=== PATIENT | female | born 1990 | race Caucasian/White ===

== ENCOUNTER 2023-12-26 16:40 | Emergency (ER) | payer OTHER, SELFPAY ==
[2023-12-26 16:43] VITALS: BP 121/76; PULSE 94; TEMP 36.9; O2SAT 99
--- NOTE | 2023-12-26 17:00 | ED_ITS ---
HPI HPI - General Adult General Chief complaint: Psychiatric Symptoms Stated complaint: ALTERED MENTAL Time Seen by Provider: 12/26/23 16:49 Source: patient Mode of arrival: ambulance Limitations: no limitations History of Present Illness HPI narrative: The patient brought to us by the police department for wellness check due to possible altered mental status, the patient grandparents called the police after she was outside their house using the faucet to wash her face The patient was also barefoot when arrived According to the patient that initially seem to be have been initiated. She was smoking marijuana before the arrival She mentioned that she was kicked out of her father house as well as her mother house and she is going to live with her , her is coming to pick her up from the ER When speaking with the patient she was cooperative she was able to give me a full history as well as oriented x 3 She denies being suicidal homicidal and she was showing episodes of laughing sometimes when talking to her but mentioned that she usually just smokes marijuana she does not use drugs When asked about being depressed she mentioned that she is always thinking about her kids and she have 3 kids that are at the custody of her sister and she would not hurt herself because she want to be there for her kids Related Data Allergies Allergy/AdvReac Type Severity Reaction Status Date / Time No Known Drug Allergies Allergy Verified 12/26/23 16:48 Opioid HPI Opioid Management Most Recent Opioid Data: Ur Phencyclidine Scrn Negative (NEGATIVE) 12/26/23 18:30 Review of Systems ROS Status of ROS 10 or more systems reviewed and unremark able except as noted in history and below Exam Narrative Exam Narrative: Nurses notes and vital signs reviewed and patient is not hypoxic. General: Well-appearing and in no apparent distress. Skin: Warm, dry, no pallor noted. No rash. Head: Normocephalic, atraumatic. Neck: Supple, non-tender. Eye: Pupils are equal, round and EOMI. No scleral icterus. Ears, Nose, Mouth, and Throat: TM are clear, no nasal mucosal hypertrophy. Oral mucosa is moist, no posterior oropharynx erythema, uvula is mid-line Cardiovascular: Regular Rate and Rhythm without murmur, gallop or rub. Respiratory: No accessory muscle use or respiratory distress. Lungs are clear to auscultation, no wheezing, rales or rhonchi Chest Wall: no tenderness Back: No midline thoracic or lumbar vertebral tenderness. No CVA tenderness Musculoskeletal: normal ROM, no calf or popliteal tenderness, no lower extremity edema/swelling GI: Abdomen is soft, non-distended. Normal bowel sounds. No masses appreciated. No tenderness to palpation. No rebound, guarding, or rigidity noted. Neurological: A&O x4. No cranial nerve dysfunction observed. No truncal ataxia. Moves all extremities. Sensation intact. Psychiatric: Cooperative and interactive. Euphoric sometimes and laughing Constitutional Vital Signs, click to edit/add: Last Vital Signs Temp 98.5 F 12/26/23 16:43 Pulse 94 H 12/26/23 16:43 Resp 16 12/26/23 16:43 BP 121/76 12/26/23 16:43 Pulse Ox 99 12/26/23 16:43 O2 Del Method Room Air 12/26/23 16:43 Course Vital Signs Vital signs: Vital Signs Temperature 98.5 F 12/26/23 16:43 Pulse Rate 94 H 12/26/23 16:43 Respiratory Rate 16 12/26/23 16:43 Blood Pressure 121/76 12/26/23 16:43 Pulse Oximetry 99 12/26/23 16:43 Oxygen Delivery Method Room Air 12/26/23 16:43 Temperature 98.5 F 12/26/23 16:43 Pulse Rate 94 H 12/26/23 16:43 Respiratory Rate 16 12/26/23 16:43 Blood Pressure 121/76 12/26/23 16:43 Pulse Oximetry 99 12/26/23 16:43 Oxygen Delivery Method Room Air 12/26/23 16:43 Medical Decision Making [facility] Narrative Medical decision making narrative: CBC shows no leukocytosis and normal and the patient chemistry shows mild hypokalemia The patient alcohol level is negative Awaiting the tox screen The patient presentation is mostly secondary to marijuana use as she admitted to smoking before arrival, at the moment the patient is being coherent mentioned that she have reason to live and she is not depressed, referring to her kids The patient is not suicidal or homicidal and her presentation could be secondary to use of marijuana The patient right now will be discharged as soon as we have a safe discharge for her to go home either to her grandparents or her mother house Lab Data Labs: Lab Results 12/26/23 12/26/23 Range/Units 17:11 18:30 WBC 7.9 (4.0-11.0) 10^3/uL RBC 3.83 L (4.20-5.40) 10^6/uL Hgb 11.8 L (12.0-16.0) g/dL Hct 34.5 L (36.0-48.0) % MCV 90.1 (81.0-99.0) fL MCH 30.8 (26.7-34.0) pg MCHC 34.2 (29.9-35.2) g/dL RDW 12.6 (11.0-15.0) % Plt Count 284 (150-450) 10^3/uL MPV 9.6 (9.5-13.5) fL Neut % (Auto) 69.7 (43.0-75.0) % Lymph % (Auto) 19.0 L (20.5-60.0) % Casey % (Auto) 9.6 (1.7-12.0) % Eos % (Auto) 1.3 (0.9-7.0) % Baso % (Auto) 0.1 L (0.2-2.0) % Neut # (Auto) 5.5 (1.4-6.5) 10^3/uL Lymph # (Auto) 1.5 (1.2-3.8) 10^3/uL Casey # (Auto) 0.8 (0.3-0.8) 10^3/uL Eos # (Auto) 0.1 (0.0-0.7) 10^3/uL Baso # (Auto) 0.0 (0.0-0.1) 10^3/uL Abs Immat Gran (auto) 0.02 (0.00-0.03) 10^3/uL Imm/Tot Granulo (auto) 0.3 (0.0-0.5) % Sodium 141 (136-145) mmol/L Potassium 3.1 L (3.5-5.1) mmol/L Chloride 105 (98-107) mmol/L Carbon Dioxide 26.1 (21.0-32.0) mmol/L Anion Gap 13.0 BUN 15.0 (7.0-18.0) mg/dL Creatinine 0.98 (0.55-1.02) mg/dL Est GFR ( Amer) >60 (>=60) Est GFR (Non-Af Amer) >60 (>=60) BUN/Creatinine Ratio 15.3 Glucose 90 (74-106) mg/dL Calcium 8.9 (8.5-10.1) mg/dL Total Bilirubin 0.7 (0.2-1.0) mg/dL AST 37 (15-37) U/L ALT 21 (14-59) U/L Alkaline Phosphatase 59 (46-116) U/L Total Protein 7.0 (6.4-8.2) g/dL Albumin 3.8 (3.4-5.0) g/dL Globulin 3.2 g/dL Albumin/Globulin Ratio 1.2 Serum HCG, Qual Negative (NEGATIVE) Urine Opiates Screen Negative (NEGATIVE) Ur Buprenorphine Scrn Negative (NEGATIVE) Ur Oxycodone Screen Negative (NEGATIVE) Urine Methadone Screen Negative (NEGATIVE) Ur Barbiturates Screen Negative (NEGATIVE) U Tricyclic Antidepress Negative (NEGATIVE) Ur Phencyclidine Scrn Negative (NEGATIVE) Ur Amphetamines Screen Negative (NEGATIVE) U Methamphetamines Scrn Negative (NEGATIVE) U Benzodiazepines Scrn Negative (NEGATIVE) Urine Cocaine Screen Negative (NEGATIVE) U Cannabinoids Screen Positive A (NEGATIVE) Ethanol Quant <3 mg/dL Discharge Plan Discharge Chief Complaint: Psychiatric Symptoms Clinical Impression: Cannabis use disorder Time of Disposition Decision: 18:55 Print Language: Chadian Referrals: Physician,Non-Staff, MD [Primary Care Provider] - 1 week
[2023-12-26 17:25] LABS: Basophils Percent Auto 0.1 % (0.2-2.0); Eosinophils Absolute Auto 0.1 10^3/uL (0.0-0.7); Eosinophils Percent Auto 1.3 % (0.9-7.0); Hematocrit 34.5 % (36.0-48.0); Hemoglobin 11.8 g/dL (12.0-16.0); Immature Granulocytes Abs Auto 0.02 10^3/uL (0.00-0.03); Immature Granulocytes Pct Auto 0.3 % (0.0-0.5); Lymphocytes Absolute Auto 1.5 10^3/uL (1.2-3.8); Mean Corpuscular HGB Conc 34.2 g/dL (29.9-35.2); Mean Corpuscular Hemoglobin 30.8 pg (26.7-34.0); Mean Corpuscular Volume 90.1 fL (81.0-99.0); Mean Platelet Volume 9.6 fL (9.5-13.5); Monocytes Absolute Auto 0.8 10^3/uL (0.3-0.8); Monocytes Percent Auto 9.6 % (1.7-12.0); Neutrophils Absolute Auto 5.5 10^3/uL (1.4-6.5); Neutrophils Percent Auto 69.7 % (43.0-75.0); Platelet Count 284 10^3/uL (150-450); Red Blood Count 3.83 10^6/uL (4.20-5.40); Red Cell Distribution Width 12.6 % (11.0-15.0); White Blood Count 7.9 10^3/uL (4.0-11.0)
[2023-12-26 17:40] LABS: Alanine Aminotransferase 21 U/L (14-59); Albumin Globulin Ratio 1.2; Albumin Level 3.8 g/dL (3.4-5.0); Alkaline Phosphatase 59 U/L (46-116); Aspartate Amino Transferase 37 U/L (15-37); BUN Creatinine Ratio 15.3; Bilirubin Total 0.7 mg/dL (0.2-1.0); Calcium 8.9 mg/dL (8.5-10.1); Carbon Dioxide 26.1 mmol/L (21.0-32.0); Chloride 105 mmol/L (98-107); Estimated GFR (African America >60 (>=60); Estimated GFR (Non-African Ame >60 (>=60); Globulin 3.2 g/dL; Glucose 90 mg/dL (74-106); Potassium 3.1 mmol/L (3.5-5.1); Sodium 141 mmol/L (136-145)
[2023-12-26 17:41] LABS: Ethanol <3 mg/dL
[2023-12-26 17:46] LABS: HCG Qualitative NEGATIVE (NEGATIVE); Internal Control Within Normal Limits
[2023-12-26 18:44] LABS: Amphetamine Screen Urine NEGATIVE (NEGATIVE); Barbiturates Screen Urine NEGATIVE (NEGATIVE); Benzodiazepines Screen Urine NEGATIVE (NEGATIVE); Buprenorphine Screen Urine NEGATIVE (NEGATIVE); Cannabinoid Screen Urine POSITIVE (NEGATIVE); Cocaine Screen Urine NEGATIVE (NEGATIVE); Methadone Screen Urine NEGATIVE (NEGATIVE); Methamphetamines Screen Urine NEGATIVE (NEGATIVE); Opiate Screen Urine NEGATIVE (NEGATIVE); Oxycodone Screen Urine NEGATIVE (NEGATIVE); Phencyclidine Screen Urine NEGATIVE (NEGATIVE); Tricyclic Antidepressant Urine NEGATIVE (NEGATIVE)
== END 2023-12-26 19:30 | disposition home or self-care (01) ==
PROVIDERS: Emergency Provider Emergency Medicine
DX: F12.988 Cannabis use, unspecified with other cannabis-induced disorder (principal)
CPT/HCPCS: 36415; 80053; 80307; 80320; 84703; 85025; 99283

== ENCOUNTER 2024-01-09 17:00 | Emergency (ER) | payer OTHER, SELFPAY ==
[2024-01-09 17:03] VITALS: BP 111/70; PULSE 87; TEMP 36.4; O2SAT 98; BMI 18.2
--- NOTE | 2024-01-09 17:42 | ED_ITS ---
HPI - Anxiety General Chief Complaint: Anxiety Stated Complaint: ANXIETY SYMPTOMS Time Seen by Provider: 01/09/24 17:13 Source: patient Mode of arrival: walk-in Limitations: no limitations History of Present Illness HPI narrative: The patient is coming to us with a concern of an anxiety, she mentioned that she has been having a lot going on for the last year including losing her kids and sleeping in her car after she being homeless, the patient mentioned that she will have episodes where she, has panic attack and she cannot sleep sometimes, the patient is denying any pain specifically to the chest or abdomen or head She also denies being suicidal or homicidal Related Data Previous Rx's ?Medication ?Instructions ?Recorded hydroxyzine pamoate 25 mg capsule 25 mg PO Q8H PRN anxiety #10 caps 01/09/24 (Vistaril) Allergies Allergy/AdvReac Type Severity Reaction Status Date / Time No Known Drug Allergies Allergy Verified 12/26/23 16:48 Review of Systems ROS Status of ROS 10 or more systems reviewed and unremark able except as noted in history and below Exam Narrative Exam Narrative: Nurses notes and vital signs reviewed and patient is not hypoxic. General: Well-appearing and in no apparent distress. Skin: Warm, dry, no pallor noted. No rash. Head: Normocephalic, atraumatic. Neck: Supple, non-tender. Eye: Pupils are equal, round and EOMI. No scleral icterus. Ears, Nose, Mouth, and Throat: TM are clear, no nasal mucosal hypertrophy. Oral mucosa is moist, no posterior oropharynx erythema, uvula is mid-line Cardiovascular: Regular Rate and Rhythm without murmur, gallop or rub. Respiratory: No accessory muscle use or respiratory distress. Lungs are clear to auscultation, no wheezing, rales or rhonchi Chest Wall: no tenderness Back: No midline thoracic or lumbar vertebral tenderness. No CVA tenderness Musculoskeletal: normal ROM, no calf or popliteal tenderness, no lower extremity edema/swelling GI: Abdomen is soft, non-distended. Normal bowel sounds. No masses appreciated. No tenderness to palpation. No rebound, guarding, or rigidity noted. Neurological: A&O x4. No cranial nerve dysfunction observed. No truncal ataxia. Moves all extremities. Sensation intact. Psychiatric: Cooperative and interactive. Normal mood and affect. Constitutional Vital Signs, click to edit/add: Last Vital Signs Temp 97.6 F 01/09/24 17:03 Pulse 87 01/09/24 17:03 Resp 18 01/09/24 17:03 BP 111/70 01/09/24 17:03 Pulse Ox 98 01/09/24 17:03 O2 Del Method Room Air 01/09/24 17:35 Course Vital Signs Vital signs: Vital Signs Temperature 97.6 F 01/09/24 17:03 Pulse Rate 87 01/09/24 17:03 Respiratory Rate 18 01/09/24 17:03 Blood Pressure 111/70 01/09/24 17:03 Pulse Oximetry 98 01/09/24 17:03 Oxygen Delivery Method Room Air 01/09/24 17:03 Temperature 97.6 F 01/09/24 17:03 Pulse Rate 87 01/09/24 17:03 Respiratory Rate 18 01/09/24 17:03 Blood Pressure 111/70 01/09/24 17:03 Pulse Oximetry 98 01/09/24 17:03 Oxygen Delivery Method Room Air 01/09/24 17:35 MDM - Anxiety MDM Narrative Medical decision making narrative: The patient had multiple reasons to be anxious including the fact that she lives in her car, but she denied on multiple occasion that she is suicidal or homicidal She has never been seen by psychiatrist and she never had an official diagnosis of anxiety Right now other supportive care the patient will be provided with Vistaril for anxiety management and she was provided with resources for outpatient treatment The patient is to follow up with primary care physician in next 2-3 days or to return to the emergency department should any of the signs or symptoms worsen or new symptoms develop. The patient agrees with the following Diagnosis and Treatment plan and the patient will be discharged home. Discharge Plan Discharge Stand Alone Forms: Portal Instructions Chief Complaint: Anxiety Clinical Impression: Anxiety Patient Disposition: Home, Self-Care Time of Disposition Decision: 17:28 Condition: Good Prescriptions / Home Meds: New hydroxyzine pamoate [Vistaril] 25 mg capsule 25 mg PO Q8H PRN (Reason: anxiety) Qty: 10 0RF Print Language: Moroccan Instructions: Anxiety (ED) Referrals: Physician,Non-Staff, MD [Primary Care Provider] - 1 week
== END 2024-01-09 17:43 | disposition home or self-care (01) ==
PROVIDERS: Emergency Provider Emergency Medicine
DX: F41.9 Anxiety disorder, unspecified (principal); Z59.02 Unsheltered homelessness
CPT/HCPCS: 99283

== ENCOUNTER 2024-11-24 01:00 | Emergency (ER) | payer OTHER, SELFPAY ==
--- OUTSIDE RECORDS SUMMARY | 2024-02-22 09:06 | XMS_ITS | Continuity of Care Document ---
Author Organization [facility] Address [address] [place] [address] Phone Care Team Providers Care Independent Film Maker Name Role Phone Saran MSN, WASHING TUB OPERATOR-C, PM, Viki Unavailable Unavailable Allergies, Adverse Reactions, Alerts Substance Reaction Status Criticality No Known Allergies Active No Inform ation Medications Medication Instructions Dosage Effective Dates (start - stop) Status Comments hydroxyzine pamoate 50 mg capsule PO every 6 hours as needed - Active paliperidone ER 3 mg tablet,extended release 24 hr take 1 tablet by oral route daily at bedtime - Active nicotine 21 mg/24 hr daily transdermal patch apply 1 patch by transdermal route every day and remove at bedtime 21 MG - Active Procedures Procedure Date Bp scrn perf rec interval DIAST BP < 80 MM HG SYST BP < 130 MM HG MED LIST DOCD IN [facility] RVW MEDS BY RX/DR IN [facility] PT TOBACCO USE DONE [facility] TLK Pos clin depres scrn f/u doc ROUTINE VENIPUNCTURE OFFICE/OUTPATIENT VISIT, EST PREV VISIT, NEW, AGE 18-39 OFFICE/OUTPATIENT VISIT, EST SPECIMEN HANDLING RISK ASSISSMENT CARE COORDINATION OFFICE/OUTPATIENT VISIT, EST GLUCOSE BLOOD TEST CARE COORDINATION OFFICE/OUTPATIENT VISIT, EST CARE COORDINATION OFFICE/OUTPATIENT VISIT, EST SPECIMEN HANDLING CARE COORDINATION OFFICE/OUTPATIENT VISIT, NEW RISK ASSISSMENT COUNSELING AND EDUCATION CARE COORDINATION ROUTINE VENIPUNCTURE OFFICE/OUTPATIENT VISIT, EST URINE TEST Advance Directives Directive Yes / No Effective Date File Name No Information Encounters Encounter Description Practice Location Reason(s) For Visit Diagnoses Date Provider Providers Copied on Encounter [facility], [address], [place], [id number] , [place] tel:[phone] [facility] No Information 4 Saran Drew. [address] [place] [address], [id number], [place]. tel:[phone] OFFICE/OUTPA TIENT VISIT, [facility], [address] [place] [address], [id number] , [place] tel:[phone] [facility] Establish Care (chief complaint) Lab Draw (chief complaint) Body mass index [BMI] 21.0-21.9, adultAnxiety disorder, unspecifiedDepressio n, unspecifiedNeed for hepatitis C screening testScreening for HIV (human immunodeficiency virus)Diabetes mellitus screeningPolysubstan ce use disorder 4 Aren Alcantara. [address] [place] [address], [id number], [place]. tel:[phone] PREV VISIT, NEW, AGE 18-39 [facility], [address], [place], [id number] , [place] tel:[phone] [facility] annual exam (chief complaint) Encounter for gynecological examination (general) (routine) without abnormal findings- STD High risk heterosexual behavior- STD screen- HIVIrregular periods 4 Abdiel [facility] Paulina. [address] [place] [address], [id number], [place]. tel:[phone] OFFICE/OUTPA TIENT VISIT, [facility], [address] [place] [address], [id number] , [place] tel: [phone] [facility] No Information 1 Edwina EDITA Celeste. [address], [place], [id number]. tel:[phone] OFFICE/OUTPA TIENT VISIT, [facility], [address], [place], [id number] , [place] tel: [phone] [facility] No Information 1 Edwina EDITA Celeste. [address], [place], [id number]. tel:[phone] OFFICE/OUTPA TIENT VISIT, [facility], [address], [place], [id number] , [place] tel: [phone] [facility] No Information 1 Diane Donahue. [address], [place], [id number]. tel:[phone] OFFICE/OUTPA TIENT VISIT, [facility], [address], [place], [id number] , [place] tel: [phone] [facility] No Information 1 Diane Donahue. [address], [place], [id number]. tel:[phone] OFFICE/OUTPA TIENT VISIT, [facility], [address], [place], [id number] , [place] tel: [phone] [facility] No Information 1 Rukhsana Jamison. [address], [place], [id number], [place]. tel:[phone] OFFICE/OUTPA TIENT VISIT, [facility], [address], [place], [id number] , [place] tel: [phone] [facility] No Information 0 Leslie Alarcon. [address], [place], [id number], [place]. tel:[phone] Family History Family Member Type Diagnosis Age At Onset Mother Problem illegal drug use Father Problem illegal drug use Sister Problem illegal drug use Mother Problem Mental disorder Father Problem Alcoholism Payers Payer name Insurance type Covered alliance party ID Renee [facility]s) [facility] [id number] Medicaid Wrap - [facility] [id number] Social History Type Description Quantity Date Captured Comments Alcohol Use Details Unknown Caffeine Use Details Unknown Tobacco Use Status Smoking Status No Information Sex Female Sexual Orientation Straight or heterosexual Dec Gender Identity Female Chief Complaint And Reason For Visit No Information Reason For Referral Reason For Referral No Information Plan Of Treatment Date Type Action Status Goal HPV. Due on due Goal Hepatitis C screening. Due o n due Goal Depression screening. Due on due Goal Influenza vaccine. Due on due Goal Unhealthy drug use screening . Due on due Goal RLP. Due on due Goal Lipid panel. Due on due Goal PRAPARE ASSESSMENT. Due on S due Goal Tdap. Due on due Goal Tdap Vaccine. Due on 2023 due Goal Tdap. Due on due Goal Unhealthy drug use screening . Due on due Goal Depression screening. Due on due Goal HPV. Due on due Goal RLP. Due on due Goal Influenza vaccine. Due on due Goal Hepatitis C screening. Due o n due Goal PRAPARE ASSESSMENT. Due on A due Goal Tdap Vaccine. Due on 2023 due Goal Tobacco cessation counseling completed Goal Lifestyle education regardin g diet completed Goal Hepatitis C screening. Due o n due Goal Unhealthy drug use screening . Due on due Goal Tdap Vaccine. Due on 2023 due Goal RLP. Due on due Goal Tdap. Due on due Goal Influenza vaccine. Due on Ju due Goal Depression screening. Due on due Goal HPV. Due on due Goal PRAPARE ASSESSMENT. Due on J due History Of Present Illness Encounter Date Complaint History Of Presmaira nt Illness Establish Care Patient is here to establish care. Patient states main concern is her psychiatric issues. Patient states she is very ADHD and has a hard time buckling down. States she is having a hard time keeping her thoughts focused. States even coming in for her appointment was a chore. Would like referred to an general road production manager. States she is wondering what would be best since she has [facility]. Patient is agreeable to laboratory work. Patient struggles with anxiety and depression. Patient was just released from [facility] with a Dx of Acute Psychosis and Schizophrenia. Has all paperwork present at the visit. Smokes 2 cigarettes/day.//Liz PETIT. Not interested in vaccines.//Liz PETIT. Lab Draw Labs drawn x1 at tempt in [facility]. Patient tolerated well. 2x2 and bandage applied.//Liz PETIT.review of hospital paperwork shows dx of psychosis. no schizophrenia listed in her paperwork. tp annual exam Currently pregna nt: no. : 4. Parity: Term: 4. Livin. The client states using tubal ligation for control. Last LMP was 12/20/2023. The client does not use tobacco. The client formerly drank alcohol. Additional information: Patient is here for annual exam. She is currently abstinent and has been living in her car until 1 week ago when she moved into [employer] 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 She desires HIV, RPR and Hep C. She does not desire BCM or regulation of menses at this time. States she is starting to eat better and gain weight and feels as if her menses will regulate on their own once she is healthier. . Functional Status Date Functional Assessmen t No Information Instructions Date Instruction Additional Infor codie Lifestyle education regarding di et Related to Body mass index [BMI] 21.0-21.9, adult Giving encouragement to exercise Related to Body mass index [BMI] 21.0-21.9, adult Discussed irregular menses in detail and agree menses may regulate once she is at a healthy weight. Patient desires to monitor for 1 year. Of continues after 1 year then patient instructed to RTC for evaluation Related to Irregular periods cervical cultures ob tained and sent to lab. Patient to call in 1 week for result. Stress importance of using condoms to prevent STDs in the future. Related to - STD screen HIV, RPR and Hep C d rawn and sent to lab. Valarieetn to call in 1 week for result Related to - HIV Encouraged good diet albaro intake, exercise and healthy lifestyle choices. Recommend daily multi-vitamin with Folic acid. Understands the need for non-violent partners in a consensual relationship. Patient does not desire a in the near future. Reviewed control options for prevention and desires to not be on BCM at this time. Desires abstinenceDesires HIV, RPR and Hep CDeclines vaccines offered in office today Related to Encounter for gynecological examination (general) (routine) without abnormal findings Assessments Type Assessment Date No Information Patient Care Teams Name Effective Dates (start - stop) Status Members No Information
[2024-11-24 01:01] VITALS: BP 116/62; PULSE 66; TEMP 36.9; O2SAT 99; BMI 22.3
--- NOTE | 2024-11-24 01:36 | ED.PSYCH1 ---
Documented by User: Keshav Khan MD 11/25/24 19:37 HPI - Psych General Chief Complaint: Psychiatric Symptoms Stated Complaint: PSYCHIATRIC SYMPTOMS Time Seen by Provider: 11/24/24 01:33 Source: Reports patient Mode of arrival: walk-in Limitations: Reports no limitations History of Present Illness HPI Narrative: history of schizophrenia. Stop taking her medication last year 04/13. auditory and visual hallucinations. left work this AM. Feels she is being stalked. denies any thought of suicide . Denies overdose of any drugs. Did smoke marijuana a couple of days ago Related Data Allergies Allergy/AdvReac Type Severity Reaction Status Date / Time No Known Drug Allergies Allergy Verified 11/24/24 01:01 PFSH PFSH Social History Little interest or pleasure in doing things: more than half the days Feeling down, depressed, or hopeless: more than half the days Exam Constitutional Vital Signs, click to edit/add: Last Vital Signs Temp 98.5 F 11/24/24 01:01 Pulse 67 11/24/24 07:56 Resp 20 11/24/24 07:56 BP 115/76 11/24/24 07:56 Pulse Ox 100 11/24/24 07:56 O2 Del Method Room Air 11/24/24 07:56 Common normals: no apparent distress, average body habitus, oriented x3, no limitations, healthy appearing, alert and well nourished [facility] Common normals: normocephalic and head/scalp atraumatic Eye Common normals: PERRL and EOMs intact bilaterally Respiratory Common normals: normal respiratory effort, no retractions, no use of accessory muscles and clear to auscultation bilaterally Cardio Common normals: regular rate, regular rhythm, S1 normal heart sound and S2 normal heart sound GI Common normals: Normal to inspection, nondistended, normoactive bowel sounds present, soft to palpation and non-tender Extremity Common normals: normal to inspection and full ROM Neuro Common normals: oriented x3, CN's II-XII intact bilaterally, moves all extremities, no focal motor deficits and no sensory deficits noted Psych Appearance: grossly normal Course Vital Signs Vital signs: Vital Signs Temperature 98.5 F 11/24/24 01:01 Pulse Rate 66 11/24/24 01:01 Respiratory Rate 16 11/24/24 01:01 Blood Pressure 116/62 11/24/24 01:01 Pulse Oximetry 99 11/24/24 01:01 Oxygen Delivery Method Room Air 11/24/24 01:01 Temperature 98.5 F 11/24/24 01:01 Pulse Rate 67 11/24/24 07:56 Respiratory Rate 20 11/24/24 07:56 Blood Pressure 115/76 11/24/24 07:56 Pulse Oximetry 100 11/24/24 07:56 Oxygen Delivery Method Room Air 11/24/24 07:56 MDM - Psych MDM Narrative Medical decision making narrative: patient is schizophrenic. presents from work with complaint of hallucinations. has not taken any psych meds since 04/13. Not suicidal and remains cooperative. Lab unremarkable except urine drug screen positive for marijuan which patient admitted to. Waiting for her to consult with mental health worker and then will decide disposition Lab Data Labs: Lab Results 11/24/24 11/24/24 Range/Units 01:15 01:40 WBC 5.5 (4.0-11.0) 10^3/uL RBC 4.11 L (4.20-5.40) 10^6/uL Hgb 12.5 (12.0-16.0) g/dL Hct 36.7 (36.0-48.0) % MCV 89.3 (81.0-99.0) fL MCH 30.4 (26.7-34.0) pg MCHC 34.1 (29.9-35.2) g/dL RDW 12.8 (11.0-15.0) % Plt Count 283 (150-450) 10^3/uL MPV 9.8 (9.5-13.5) fL Neut % (Auto) 66.9 (43.0-75.0) % Lymph % (Auto) 21.1 (20.5-60.0) % [place] % (Auto) 9.3 (1.7-12.0) % Eos % (Auto) 2.5 (0.9-7.0) % Baso % (Auto) 0.2 (0.2-2.0) % Neut # (Auto) 3.7 (1.4-6.5) 10^3/uL Lymph # (Auto) 1.2 (1.2-3.8) 10^3/uL [place] # (Auto) 0.5 (0.3-0.8) 10^3/uL Eos # (Auto) 0.1 (0.0-0.7) 10^3/uL Baso # (Auto) 0.0 (0.0-0.1) 10^3/uL Abs Immat Gran (auto) 0.00 (0.00-0.03) 10^3/uL Imm/Tot Granulo (auto) 0.0 (0.0-0.5) % Sodium 140 (136-145) mmol/L Potassium 3.7 (3.5-5.1) mmol/L Chloride 104 (98-107) mmol/L Carbon Dioxide 28.6 (21.0-32.0) mmol/L Anion Gap 11.1 BUN 14.0 (7.0-18.0) mg/dL Creatinine 0.67 (0.55-1.02) mg/dL Est GFR ( Amer) >60 (>=60 mL/min/1.73m^2) Est GFR (Non-Af Amer) >60 (>=60 mL/min/1.73m^2) BUN/Creatinine Ratio 20.9 Glucose 104 (74-106) mg/dL Calcium 9.0 (8.5-10.1) mg/dL Total Bilirubin 0.3 (0.2-1.0) mg/dL AST 13 L (15-37) U/L ALT 9 L (14-59) U/L Alkaline Phosphatase 55 (46-116) U/L Total Protein 7.6 (6.4-8.2) g/dL Albumin 3.8 (3.4-5.0) g/dL Globulin 3.8 g/dL Albumin/Globulin Ratio 1.0 Salicylates <2.8 (<=19.9) mg/dL Urine Opiates Screen Negative (NEGATIVE) Ur Buprenorphine Scrn Negative (NEGATIVE) Ur Oxycodone Screen Negative (NEGATIVE) Urine Methadone Screen Negative (NEGATIVE) Acetaminophen <2.0 L (10.0-30.0) ug/mL Ur Barbiturates Screen Negative (NEGATIVE) U Tricyclic Antidepress Negative (NEGATIVE) Ur Phencyclidine Scrn Negative (NEGATIVE) Ur Amphetamines Screen Negative (NEGATIVE) U Methamphetamines Scrn Negative (NEGATIVE) U Benzodiazepines Scrn Negative (NEGATIVE) Urine Cocaine Screen Negative (NEGATIVE) U Cannabinoids Screen Positive A (NEGATIVE) Ethanol Quant <3 mg/dL Discharge Plan Discharge Chief Complaint: Psychiatric Symptoms Clinical Impression: Chronic schizophrenia, Cannabis use disorder, Medical non-compliance, Bipolar disorder, Schizoaffective disorder, bipolar type [facility] Time of Disposition Decision: 09:40 Discharge Location: [facility] Discharge location: [address]; admission Condition: Fair Discharge Date/Time: 11/24/24 11:09 Documented by User: Destin Al MD 11/24/24 10:19 HPI - Psych General Chief Complaint: Psychiatric Symptoms Stated Complaint: PSYCHIATRIC SYMPTOMS Time Seen by Provider: 11/24/24 01:33 Related Data Allergies Allergy/AdvReac Type Severity Reaction Status Date / Time No Known Drug Allergies Allergy Verified 11/24/24 01:01 PFSH PFSH Social History Little interest or pleasure in doing things: more than half the days Feeling down, depressed, or hopeless: more than half the days Exam Constitutional Vital Signs, click to edit/add: Last Vital Signs Temp 98.5 F 11/24/24 01:01 Pulse 67 11/24/24 07:56 Resp 20 11/24/24 07:56 BP 115/76 11/24/24 07:56 Pulse Ox 100 11/24/24 07:56 O2 Del Method Room Air 11/24/24 07:56 Course Vital Signs Vital signs: Vital Signs Temperature 98.5 F 11/24/24 01:01 Pulse Rate 66 11/24/24 01:01 Respiratory Rate 16 11/24/24 01:01 Blood Pressure 116/62 11/24/24 01:01 Pulse Oximetry 99 11/24/24 01:01 Oxygen Delivery Method Room Air 11/24/24 01:01 Temperature 98.5 F 11/24/24 01:01 Pulse Rate 67 11/24/24 07:56 Respiratory Rate 20 11/24/24 07:56 Blood Pressure 115/76 11/24/24 07:56 Pulse Oximetry 100 11/24/24 07:56 Oxygen Delivery Method Room Air 11/24/24 07:56 MDM - Psych MDM Narrative Medical decision making narrative: patient is schizophrenic. presents from work with complaint of hallucinations. has not taken any psych meds since 04/13. Not suicidal and remains cooperative. Lab unremarkable except urine drug screen positive for marijuan which patient admitted to. Waiting for her to consult with mental health worker and then will decide disposition 914 I have spoken to the social services manager who evaluated this patient, Carla. She was going to safety plan this patient. After reviewing the triage note, Dr. Khan's note, and also looking at the crisis management plan that Carla had laid out for the patient, I am uncomfortable sending this patient home, seeming that she is not able to care for herself. Patient is hallucinating, delusional, patient appears to have possibly major depression. And that documented she is feeling overwhelmed, spending too much time alone, self isolating, situation anxiety, not taking any medications. Patient was going to have a emergency appointment scheduled for Wednesday, but patient is feeling paranoid, anxious, she is hearing voices, she is seeing things. She for like there is bugs coming out of her eyes. Patient did not appear appropriate to be able to take care of herself this weekend. After I spoke to Carla, she will speak to her psychiatrist and further make recommendations on admission or give me a call to speak about the patient. 934 we received a phone call back from Carla, I did not speak to her. She asked if I would fill out a pink slip to [employer] trade union secretary. Patient will not be admitted to oneself. I did not speak to Carla or the psychiatrist. I am filling out the pink slip on behalf of patient's interesting concerns that she does not have the functional decision-making capacity to care for herself. Patient will be admitted for further psychiatric evaluation. Patient is aware of the pink slip. Patient is aware concern for safety, that this is needed admission trying to get her back on medication, try to make sure that she is stable and healthy for herself and children [place] slipped has been filled out [phone] I spoke to the patient with Leigh Pan RN and ER zinc furnace charger as a witness at bedside. Conversation went very well. Patient is concerned about missing work and financial concerns now that she has an apartment on her own, she is starting to pay her bills and is starting to function on her own. Patient states that she had been dealing with her mental health for 5 to 6 months without medication and she has been managing it somewhat. Patient however was more concerned last night, she called the helpline was recommended come into the ER. Patient understands there is concerns for her mental wellbeing, concerns that if she continues to work when she is not more focused, and having different paranoia, hallucinations, and having exacerbation of schizoaffective disorder with bipolar type, is considering the patient may lose her job or have other concerns that may occur at work where she could lose her job and money. We discussed that social workers, will work with her along with human resources at her job. Patient wants to go home, but understands the reason for admission and is agreeing at this time. Patient is aware that she is pink slipped for her mental wellbeing and to make sure that she gets evaluated, see psychiatrist and therapist, get back on medication, so that she continue to function and do better at her job in life than she has been in the last 5 to 6 months. Patient agrees with this. Patient will be admitted to Dr. Briones at [address] Critical care time 45 minutes exclusive from separate billable procedures that were performed. The following was considered in the determination of critical care but not limited to the level of medical decision making, intensive cardiac and/or respiratory monitoring, frequent vital sign monitoring, evaluation of laboratory studies, evaluation of radiographic studies, oxygen monitoring, and constant monitoring and speaking to family at bedside Lab Data Labs: Lab Results 11/24/24 11/24/24 Range/Units 01:15 01:40 WBC 5.5 (4.0-11.0) 10^3/uL RBC 4.11 L (4.20-5.40) 10^6/uL Hgb 12.5 (12.0-16.0) g/dL Hct 36.7 (36.0-48.0) % MCV 89.3 (81.0-99.0) fL MCH 30.4 (26.7-34.0) pg MCHC 34.1 (29.9-35.2) g/dL RDW 12.8 (11.0-15.0) % Plt Count 283 (150-450) 10^3/uL MPV 9.8 (9.5-13.5) fL Neut % (Auto) 66.9 (43.0-75.0) % Lymph % (Auto) 21.1 (20.5-60.0) % [place] % (Auto) 9.3 (1.7-12.0) % Eos % (Auto) 2.5 (0.9-7.0) % Baso % (Auto) 0.2 (0.2-2.0) % Neut # (Auto) 3.7 (1.4-6.5) 10^3/uL Lymph # (Auto) 1.2 (1.2-3.8) 10^3/uL [place] # (Auto) 0.5 (0.3-0.8) 10^3/uL Eos # (Auto) 0.1 (0.0-0.7) 10^3/uL Baso # (Auto) 0.0 (0.0-0.1) 10^3/uL Abs Immat Gran (auto) 0.00 (0.00-0.03) 10^3/uL Imm/Tot Granulo (auto) 0.0 (0.0-0.5) % Sodium 140 (136-145) mmol/L Potassium 3.7 (3.5-5.1) mmol/L Chloride 104 (98-107) mmol/L Carbon Dioxide 28.6 (21.0-32.0) mmol/L Anion Gap 11.1 BUN 14.0 (7.0-18.0) mg/dL Creatinine 0.67 (0.55-1.02) mg/dL Est GFR ( Amer) >60 (>=60 mL/min/1.73m^2) Est GFR (Non-Af Amer) >60 (>=60 mL/min/1.73m^2) BUN/Creatinine Ratio 20.9 Glucose 104 (74-106) mg/dL Calcium 9.0 (8.5-10.1) mg/dL Total Bilirubin 0.3 (0.2-1.0) mg/dL AST 13 L (15-37) U/L ALT 9 L (14-59) U/L Alkaline Phosphatase 55 (46-116) U/L Total Protein 7.6 (6.4-8.2) g/dL Albumin 3.8 (3.4-5.0) g/dL Globulin 3.8 g/dL Albumin/Globulin Ratio 1.0 Salicylates <2.8 (<=19.9) mg/dL Urine Opiates Screen Negative (NEGATIVE) Ur Buprenorphine Scrn Negative (NEGATIVE) Ur Oxycodone Screen Negative (NEGATIVE) Urine Methadone Screen Negative (NEGATIVE) Acetaminophen <2.0 L (10.0-30.0) ug/mL Ur Barbiturates Screen Negative (NEGATIVE) U Tricyclic Antidepress Negative (NEGATIVE) Ur Phencyclidine Scrn Negative (NEGATIVE) Ur Amphetamines Screen Negative (NEGATIVE) U Methamphetamines Scrn Negative (NEGATIVE) U Benzodiazepines Scrn Negative (NEGATIVE) Urine Cocaine Screen Negative (NEGATIVE) U Cannabinoids Screen Positive A (NEGATIVE) Ethanol Quant <3 mg/dL Discharge Plan Discharge Chief Complaint: Psychiatric Symptoms Clinical Impression: Chronic schizophrenia, Cannabis use disorder, Medical non-compliance, Bipolar disorder, Schizoaffective disorder, bipolar type [facility] Time of Disposition Decision: 09:40 Discharge Location: [facility] Discharge location: [address]; admission Condition: Fair Discharge Date/Time: 11/24/24 11:09
[2024-11-24 01:40] VITALS: O2SAT 99
[2024-11-24 01:59] LABS: Alanine Aminotransferase 9 U/L (14-59); Albumin Level 3.8 g/dL (3.4-5.0); Alkaline Phosphatase 55 U/L (46-116); Anion Gap 11.1; Aspartate Amino Transferase 13 U/L (15-37); BUN Creatinine Ratio 20.9; Bilirubin Total 0.3 mg/dL (0.2-1.0); Carbon Dioxide 28.6 mmol/L (21.0-32.0); Chloride 104 mmol/L (98-107); Estimated GFR (African America >60 (>=60 mL/min/1.73m^2); Estimated GFR (Non-African Ame >60 (>=60 mL/min/1.73m^2); Ethanol <3 mg/dL; Globulin 3.8 g/dL; Glucose 104 mg/dL (74-106); Potassium 3.7 mmol/L (3.5-5.1); Salicylate <2.8 mg/dL (<=19.9); Sodium 140 mmol/L (136-145); Total Protein 7.6 g/dL (6.4-8.2)
[2024-11-24 02:00] LABS: Basophils Percent Auto 0.2 % (0.2-2.0); Eosinophils Absolute Auto 0.1 10^3/uL (0.0-0.7); Eosinophils Percent Auto 2.5 % (0.9-7.0); Hematocrit 36.7 % (36.0-48.0); Hemoglobin 12.5 g/dL (12.0-16.0); Lymphocytes Absolute Auto 1.2 10^3/uL (1.2-3.8); Lymphocytes Percent Auto 21.1 % (20.5-60.0); Mean Corpuscular HGB Conc 34.1 g/dL (29.9-35.2); Mean Corpuscular Hemoglobin 30.4 pg (26.7-34.0); Mean Corpuscular Volume 89.3 fL (81.0-99.0); Mean Platelet Volume 9.8 fL (9.5-13.5); Monocytes Absolute Auto 0.5 10^3/uL (0.3-0.8); Monocytes Percent Auto 9.3 % (1.7-12.0); Neutrophils Absolute Auto 3.7 10^3/uL (1.4-6.5); Neutrophils Percent Auto 66.9 % (43.0-75.0); Platelet Count 283 10^3/uL (150-450); Red Blood Count 4.11 10^6/uL (4.20-5.40); Red Cell Distribution Width 12.8 % (11.0-15.0); White Blood Count 5.5 10^3/uL (4.0-11.0)
[2024-11-24 02:10] LABS: Acetaminophen <2.0 ug/mL (10.0-30.0)
[2024-11-24 02:16] LABS: Amphetamine Screen Urine NEGATIVE (NEGATIVE); Barbiturates Screen Urine NEGATIVE (NEGATIVE); Benzodiazepines Screen Urine NEGATIVE (NEGATIVE); Buprenorphine Screen Urine NEGATIVE (NEGATIVE); Cannabinoid Screen Urine POSITIVE (NEGATIVE); Cocaine Screen Urine NEGATIVE (NEGATIVE); Methadone Screen Urine NEGATIVE (NEGATIVE); Methamphetamines Screen Urine NEGATIVE (NEGATIVE); Opiate Screen Urine NEGATIVE (NEGATIVE); Oxycodone Screen Urine NEGATIVE (NEGATIVE); Phencyclidine Screen Urine NEGATIVE (NEGATIVE); Tricyclic Antidepressant Urine NEGATIVE (NEGATIVE)
[2024-11-24] MEDS: NICOTINE 21 MG PATCH.TD24 TD (04:58)
--- NOTE | 2024-11-24 05:36 | ECG_ITS ---
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 Measurements Intervals [place] Rate: 54 P: 84 DE: 268 QRS: 75 QRSD: 82 T: 70 QT: 436 QTc: 421 Interpretive Statements 1100 Sinus rhythm 1102 Sinus arrhythmia 2231 First degree AV block 9150 abnormal ECG No previous ECG available for comparison Electronically Signed On 11-24-2024 18:21:07 EDT by WENDIE SHAFFER M.D.
--- NOTE | 2024-11-24 07:28 | PC.NURSE ---
Joanie from [facility] calls and is given update on patient. Awaiting return call from [facility] counselor.
[2024-11-24 07:56] VITALS: BP 115/76; PULSE 67; O2SAT 100
--- NOTE | 2024-11-24 08:25 | PC.NURSE ---
Patient speaking with counselor Carla via ipad at this time.
--- NOTE | 2024-11-24 09:45 | ED_ITS ---
HPI HPI - General Adult General Chief complaint: Psychiatric Symptoms Stated complaint: PSYCHIATRIC SYMPTOMS Time Seen by Provider: 11/24/24 01:33 Source: patient Mode of arrival: walk-in Limitations: no limitations Related Data Allergies Allergy/AdvReac Type Severity Reaction Status Date / Time No Known Drug Allergies Allergy Verified 11/24/24 01:01 Opioid HPI Opioid Management Most Recent Opioid Data: Ur Phencyclidine Scrn, (NEGATIVE) Negative Today, 01:40 PFSH PFSH Social History Little interest or pleasure in doing things: more than half the days Feeling down, depressed, or hopeless: more than half the days Exam Constitutional Vital Signs, click to edit/add: Last Vital Signs Temp 98.5 F 11/24/24 01:01 Pulse 67 11/24/24 07:56 Resp 20 11/24/24 07:56 BP 115/76 11/24/24 07:56 Pulse Ox 100 11/24/24 07:56 O2 Del Method Room Air 11/24/24 07:56 Course Vital Signs Vital signs: Vital Signs Temperature 98.5 F 11/24/24 01:01 Pulse Rate 66 11/24/24 01:01 Respiratory Rate 16 11/24/24 01:01 Blood Pressure 116/62 11/24/24 01:01 Pulse Oximetry 99 11/24/24 01:01 Oxygen Delivery Method Room Air 11/24/24 01:01 Temperature 98.5 F 11/24/24 01:01 Pulse Rate 67 11/24/24 07:56 Respiratory Rate 20 11/24/24 07:56 Blood Pressure 115/76 11/24/24 07:56 Pulse Oximetry 100 11/24/24 07:56 Oxygen Delivery Method Room Air 11/24/24 07:56 Medical Decision Making Lab Data Labs: Lab Results 11/24/24 11/24/24 Range/Units 01:15 01:40 WBC 5.5 (4.0-11.0) 10^3/uL RBC 4.11 L (4.20-5.40) 10^6/uL Hgb 12.5 (12.0-16.0) g/dL Hct 36.7 (36.0-48.0) % MCV 89.3 (81.0-99.0) fL MCH 30.4 (26.7-34.0) pg MCHC 34.1 (29.9-35.2) g/dL RDW 12.8 (11.0-15.0) % Plt Count 283 (150-450) 10^3/uL MPV 9.8 (9.5-13.5) fL Neut % (Auto) 66.9 (43.0-75.0) % Lymph % (Auto) 21.1 (20.5-60.0) % [place] % (Auto) 9.3 (1.7-12.0) % Eos % (Auto) 2.5 (0.9-7.0) % Baso % (Auto) 0.2 (0.2-2.0) % Neut # (Auto) 3.7 (1.4-6.5) 10^3/uL Lymph # (Auto) 1.2 (1.2-3.8) 10^3/uL [place] # (Auto) 0.5 (0.3-0.8) 10^3/uL Eos # (Auto) 0.1 (0.0-0.7) 10^3/uL Baso # (Auto) 0.0 (0.0-0.1) 10^3/uL Abs Immat Gran (auto) 0.00 (0.00-0.03) 10^3/uL Imm/Tot Granulo (auto) 0.0 (0.0-0.5) % Sodium 140 (136-145) mmol/L Potassium 3.7 (3.5-5.1) mmol/L Chloride 104 (98-107) mmol/L Carbon Dioxide 28.6 (21.0-32.0) mmol/L Anion Gap 11.1 BUN 14.0 (7.0-18.0) mg/dL Creatinine 0.67 (0.55-1.02) mg/dL Est GFR ( Amer) >60 (>=60 mL/min/1.73m^2) Est GFR (Non-Af Amer) >60 (>=60 mL/min/1.73m^2) BUN/Creatinine Ratio 20.9 Glucose 104 (74-106) mg/dL Calcium 9.0 (8.5-10.1) mg/dL Total Bilirubin 0.3 (0.2-1.0) mg/dL AST 13 L (15-37) U/L ALT 9 L (14-59) U/L Alkaline Phosphatase 55 (46-116) U/L Total Protein 7.6 (6.4-8.2) g/dL Albumin 3.8 (3.4-5.0) g/dL Globulin 3.8 g/dL Albumin/Globulin Ratio 1.0 Salicylates <2.8 (<=19.9) mg/dL Urine Opiates Screen Negative (NEGATIVE) Ur Buprenorphine Scrn Negative (NEGATIVE) Ur Oxycodone Screen Negative (NEGATIVE) Urine Methadone Screen Negative (NEGATIVE) Acetaminophen <2.0 L (10.0-30.0) ug/mL Ur Barbiturates Screen Negative (NEGATIVE) U Tricyclic Antidepress Negative (NEGATIVE) Ur Phencyclidine Scrn Negative (NEGATIVE) Ur Amphetamines Screen Negative (NEGATIVE) U Methamphetamines Scrn Negative (NEGATIVE) U Benzodiazepines Scrn Negative (NEGATIVE) Urine Cocaine Screen Negative (NEGATIVE) U Cannabinoids Screen Positive A (NEGATIVE) Ethanol Quant <3 mg/dL Discharge Plan Discharge Chief Complaint: Psychiatric Symptoms Clinical Impression: Chronic schizophrenia, Cannabis use disorder, Medical non-compliance, Bipolar disorder, Schizoaffective disorder, bipolar type Patient Disposition: [facility] Time of Disposition Decision: 09:40 Discharge Location: [facility] Discharge location: [place] [address] [address]; admission Condition: Fair
== END 2024-11-24 11:09 ==
PROVIDERS: Emergency Provider Internal Medicine
DX: F25.0 Schizoaffective disorder, bipolar type (principal); Z91.148 Patient's other noncompliance with medication regimen for other reason; F12.988 Cannabis use, unspecified with other cannabis-induced disorder
CPT/HCPCS: 36415; 80053; 80179; 80307; 80320; 80329; 85025; 93005; 99285

== ENCOUNTER 2025-02-20 12:56 | Emergency (ER) | payer OTHER, SELFPAY ==
--- OUTSIDE RECORDS SUMMARY | 2024-02-22 09:06 | XMS_ITS | Continuity of Care Document ---
Author Organization [facility] Address [address] [place] [address] Phone Care Team Providers Care Store Team Member Name Role Phone Saran MSN, DRY CURE WORKER-C, PM, Viki Unavailable Unavailable Allergies, Adverse Reactions, [...] 130 MM HG MED LIST DOCD IN [facility] RVW MEDS BY RX/DR IN [facility] PT TOBACCO USE DONE [facility] TLK Pos clin depres scrn f/u [...] Diagnoses Date Provider Providers Copied on Encounter [facility], [address], [place], [id number] , [place] [phone] [facility] No Information 4 Saran Drew. [address] [place] [address], [id number], [place]. tel:[phone] OFFICE/OUTPA TIENT VISIT, [facility], [address] [place] [address], [id number] , [place] tel:[phone] [facility] Establish Care (chief complaint) Lab Draw (chief complaint) Body mass index [BMI] 21.0-21.9, adultAnxiety disorder, unspecifiedDepressio n, unspecifiedNeed for hepatitis C screening testScreening for HIV (human immunodeficiency virus)Diabetes mellitus screeningPolysubstan ce use disorder 4 Aren Alcantara. [address] [place] [address], [id number], [place]. tel:[phone] PREV VISIT, NEW, AGE 18-39 [facility], [address], [place], [id number] , [place] tel:[phone] [facility] annual exam (chief complaint) Encounter for gynecological examination (general) (routine) without abnormal findings- STD High risk heterosexual behavior- STD screen- HIVIrregular periods 4 Abdiel [facility] Paulina. [address] [place] [address], [id number], [place]. tel:[phone] OFFICE/OUTPA TIENT VISIT, [facility], [address] [place] [address], [id number] , [place] tel: [phone] [facility] No Information 1 Edwina EIDTA Celeste. [address], [place], [id number]. tel:[phone] OFFICE/OUTPA TIENT VISIT, [facility], [address], [place], [id number] , [place] tel: [phone] [facility] No Information 1 Edwina EDITA Celeste. [address], [place], [id number]. tel:[phone] OFFICE/OUTPA TIENT VISIT, [facility], [address], [place], [id number] , [place] tel: [phone] [facility] No Information 1 Diane Donahue. [address], [place], [id number]. tel:[phone] OFFICE/OUTPA TIENT VISIT, [facility], [address], [place], [id number] , [place] tel: [phone] [facility] No Information 1 Diane Donahue. [address], [place], [id number]. tel:[phone] OFFICE/OUTPA TIENT VISIT, [facility], [address], [place], [id number] , [place] tel: [phone] [facility] No Information 1 Rukhsana Jamison. [address], [place], [id number], [place]. tel:[phone] OFFICE/OUTPA TIENT VISIT, [facility], [address], [place], [id number] , [place] tel: [phone] [facility] No Information 0 Leslie Alarcon. [address], [place], [id number], [place]. tel:[phone] Family History Family Member Type Diagnosis Age At Onset Mother Problem illegal drug use Father Problem illegal drug use Sister Problem illegal drug use Mother Problem Mental disorder Father Problem Alcoholism Payers Payer name Insurance type Covered green party ID Renee [facility]FC [id number] Medicaid Wrap - [facility] [id number] Social History Type Description Quantity Date Captured Comments Alcohol Use Details Unknown Caffeine Use Details Unknown Tobacco Use Status Smoking Status No Information Sex Female Sexual Orientation Straight or heterosexual Dec Gender Identity Female Chief Complaint And Reason For Visit No Information Reason For Referral Reason For Referral No Information Plan Of Treatment Date Type Action Status Goal Unhealthy drug use screening . Due on due Goal Influenza vaccine. Due on due Goal Depression screening. Due on due Goal Hepatitis C screening. Due o n due Goal HPV. Due on due Goal RLP. Due on due Goal Lipid panel. Due on due Goal PRAPARE ASSESSMENT. Due on S due Goal Tdap. Due on due Goal Tdap Vaccine. Due on 2023 due Goal Depression screening. Due on due Goal Unhealthy drug use screening . Due on due Goal Tdap. Due on due Goal Tdap Vaccine. Due on 2023 due Goal PRAPARE ASSESSMENT. Due on A due Goal Hepatitis C screening. Due o n due Goal Influenza vaccine. Due on Au due Goal HPV. Due on due Goal RLP. Due on due Goal Tobacco cessation counseling completed Goal Lifestyle education regardin g diet completed Goal Tdap Vaccine. Due on 2023 due Goal Unhealthy drug use screening . Due on due Goal Hepatitis C screening. Due o n due Goal RLP. Due on due Goal Tdap. Due on due Goal Influenza vaccine. Due on due Goal Depression screening. Due on due Goal HPV. Due on due Goal PRAPARE ASSESSMENT. Due on due History Of Present Illness Encounter Date [...] a chore. Would like referred to an oracle forms developer. States she is wondering what would be best since she has [facility]. Patient is agreeable to laboratory work. Patient struggles with anxiety and depression. Patient was just released from [facility] with a Dx of Acute Psychosis and [...] 1 week ago when she moved into [facility]. 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
[2025-02-20 13:00] VITALS: BP 117/61; PULSE 63; TEMP 36.9; O2SAT 100; BMI 23.0
--- OUTSIDE RECORDS SUMMARY | 2025-02-20 13:03 | XMS_ITS | Clinical Summary ---
Author Organization [facility] Address [address], [address] [place] [address] Care Team Providers Care Property Controller Name Role Phone Unavailable Primary Care Provider Unavailabl e Allergies No known active allergies Medications No known medications Social History Tobacco Use Types Packs/Day Years Used Date Smoking Tobacco: Every Day Cigarettes Smokeless Tobacco: Never Comments No Sex and Gender Information Value Date Recorded Sex Assigned at Not on file Legal Sex Female 7:16 PM EDT Gender Identity Not on file Sexual Orientation Not on file Last Filed Vital Signs Vital Sign Reading Time Taken Comments Blood Pressure 102/60 12/05/2021 8:25 PM EDT Pulse 60 12/05/2021 8:25 PM EDT Temperature 36.6 C (97.9 F) 12/05/2021 8:25 PM EDT Respiratory Rate 18 12/05/2021 8:25 PM EDT Oxygen Saturation 100% 12/05/2021 8:25 PM EDT Inhaled Oxygen Concentration - - Weight 59 kg (130 lb) 12/05/2021 7:20 PM EDT Height 165.1 cm (5' 5 ) 12/05/2021 7:20 PM EDT Body Mass Index 21.63 12/05/2021 7:20 PM EDT Plan of Treatment Not on file Insurance [place]ICA[place] [facility]
--- NOTE | 2025-02-20 13:07 | ED.GENADUL1 ---
HPI HPI - General Adult General Chief complaint: Nausea/Vomiting/Diarrhea Stated complaint: FEVER DIARRHEA Time Seen by Provider: 02/20/25 12:58 Source: patient Mode of arrival: walk-in Limitations: no limitations History of Present Illness HPI narrative: 34 year old female presents to the ED for a sore throat, diarrhea, cough, congestion. Onset was 5-7 days ago. Reports chills. Denies SOB, N/V, abd pain, fever. She has increased her oral fluid intake. Related Data Home Medications ?Medication ?Instructions ?Recorded ?Confirmed No Known Home Medications 02/20/25 02/20/25 Allergies Allergy/AdvReac Type Severity Reaction Status Date / Time No Known Drug Allergies Allergy Verified 02/20/25 13:00 Opioid HPI Opioid Management Most Recent Opioid Data: Ur Phencyclidine Scrn, (NEGATIVE) Negative 11/24/24, 01:40 Review of Systems ROS Constitutional Reports: chills; Denies: fever Ears, nose, mouth, and throat Reports: throat pain, nasal discharge and nasal congestion; Denies: neck pain, difficulty swallowing, ear pain or ear discharge Cardiovascular Denies: chest pain Respiratory Reports: cough; Denies: shortness of breath Gastrointestinal Reports: diarrhea; Denies: abdominal pain, nausea or vomiting Musculoskeletal Denies: back pain Neurological Denies: headache PFSH PFSH Social History Little interest or pleasure in doing things: not at all Feeling down, depressed, or hopeless: not at all Exam Constitutional Vital Signs, click to edit/add: Last Vital Signs Temp 98.4 F 02/20/25 13:00 Pulse 63 02/20/25 13:00 Resp 14 02/20/25 13:00 BP 117/61 02/20/25 13:00 Pulse Ox 100 02/20/25 13:00 O2 Del Method Room Air 02/20/25 13:00 HENMT Common normals: external ears normal, EACs normal, TMs normal bilaterally and moist oral mucous membranes Mouth: oral and palatal mucosa normal, lip normal and tongue normal Throat: posterior oropharynx normal and uvula midline Eye Common normals: conjunctivae normal and no scleral icterus Neck & C-Spine Common normals: supple Chest Chest: symmetrical chest wall rise Respiratory Common normals: normal respiratory effort and clear to auscultation bilaterally Effort & inspection: able to speak in complete sentences and symmetric chest movement Cardio Common normals: regular rate and regular rhythm Neuro Common normals: oriented x3, moves all extremities and no focal motor deficits Sensorium/orientation: awake and alert Speech: speech normal Course Vital Signs Vital signs: Vital Signs Temperature 98.4 F 02/20/25 13:00 Pulse Rate 63 02/20/25 13:00 Respiratory Rate 14 02/20/25 13:00 Blood Pressure 117/61 02/20/25 13:00 Pulse Oximetry 100 02/20/25 13:00 Oxygen Delivery Method Room Air 02/20/25 13:00 Temperature 98.4 F 02/20/25 13:00 Pulse Rate 63 02/20/25 13:00 Respiratory Rate 14 02/20/25 13:00 Blood Pressure 117/61 02/20/25 13:00 Pulse Oximetry 100 02/20/25 13:00 Oxygen Delivery Method Room Air 02/20/25 13:00 Medical Decision Making MDM Narrative Medical decision making narrative: Covid-19 and strep were negative. Findings were discussed. She was given a dose of Decadron here. Follow up with pcp for a recheck, further evaluation and treatment. Return precautions were discussed. Medical Records Medical records reviewed: Yes I reviewed the patient's medical records Lab Data Lab results reviewed: Yes I reviewed the patient's lab results Labs: Lab Results 02/20/25 Range/Units 13:15 SARS-CoV-2 Ag (CV2AG) Negative (NEGATIVE) Streptococcus Screen Negative Discharge Plan Discharge Chief Complaint: Nausea/Vomiting/Diarrhea Clinical Impression: Viral illness Patient Disposition: Home, Self-Care Time of Disposition Decision: 13:42 Condition: Good Mode of Transportation: Private Vehicle Prescriptions / Home Meds: No Action No Known Home Medications Print Language: Libyan Instructions: Pharyngitis (ED), Acute Diarrhea (ED), Viral Syndrome (ED) Additional Instructions: Return to the ED for worsening symptoms. Referrals: Physician,Non-Staff, MD [Primary Care Provider] - 1 week
[2025-02-20] MEDS: DEXAMETHASONE SOD PHOS 10 MG/ML VIAL PO (13:26)
[2025-02-20 13:34] LABS: SARS-CoV-2 Ag NEGATIVE (NEGATIVE)
== END 2025-02-20 13:48 | disposition home or self-care (01) ==
PROVIDERS: Nurse Practitioner Family; Emergency Provider Student in an Organized Health Care Education/Training Program
DX: B34.9 Viral infection, unspecified (principal)
CPT/HCPCS: 87070; 87811; 87880; 99283; J1100